=== PATIENT | female | born 1965 ===

== ENCOUNTER → 2016-11-14 | Outpatient (CLI) | payer BC | END | disposition home or self-care (01) | LOC: C.PAPS 09:22 | PROVIDERS: ATTEND Obstetrics & Gynecology | DX: Z01.419 Encounter for gynecological examination (general) (routine) without abnormal findings (principal) ==

== ENCOUNTER → 2017-01-20 | Outpatient (CLI) | payer BC ==
--- NOTE | 2017-01-21 13:36 | MAMMOGRAPHY REPORT ---
THIS REPORT HAS BEEN AMENDED. BILATERAL DIGITAL SCREENING MAMMOGRAM TOMOSYNTHESIS WITH CAD: 01/20/2017 CLINICAL HISTORY: Routine screening. Patient has no complaints. TECHNIQUE: Breast tomosynthesis in addition to standard 2D mammography was performed. Current study was also evaluated with a Computer Aided Detection (CAD) system. COMPARISON: No prior exams were available for comparison. BREAST COMPOSITION: There are scattered areas of fibroglandular density in both breasts. FINDINGS: There is an asymmetry with questionable architectural distortion in the lateral, middle t o posterior left breast, best seen on the CC view but thought to project superiorly on the MLO view. Comparison to prior outside mammograms would be useful to assess stability. There are a few punct ate microcalcifications in the anterior subareolar left breast for which comparison to outside mammo grams would be useful. No other suspicious mass, architectural distortion or cluster of microcalcifications is seen bilater ally. IMPRESSION: ACR BI-RADS CATEGORY 0: INCOMPLETE EVALUATION: NEED ADDITIONAL IMAGING EVALUATION 1. An asymmetry with questionable architectural distortion in the lateral left breast, and left sub areolar microcalcifications need comparison to prior outside mammograms to assess stability. If the outside exams are not obtained in a timely manner, additional spot compression tomosynthesis views and spot magnification views are needed in the left breast. 2. No mammographic evidence of malignancy within the right breast. The patient will be called to schedule an appointment. Approximately 10% of breast cancers are not detected with mammography. A negative mammographic repor t should not delay biopsy if a clinically suggestive mass is present. Shahrzad Mullen M.D. ay/:01/20/2017 16:29:39 Senior Firewall Engineer: Mickey BAL(Sreekanth)(Lenore), [facility] letter sent: Need Priors 0 BI-RADS Code: ACR BI-RADS Category 0: Incomplete Evaluation: Need Additional Imaging Evaluation AMENDMENT: 01/30/2017 Shahrzad Mullen M.D. Prior outside mammograms dated 11/25/2011, 12/02/2012, 12/08/2013, 12/14/2014 and 01/03/2016 became available for review. The left subareolar microcalcifications are stable on all available prior devonte mograms dating back to at least 2011, therefore likely benign with 5 years of stability. The asymmetry in the lateral left breast appears somewhat similar to the prior 2-D mammograms. Chavez jim, given the conspicuous nature and possible associated distortion on the tomosynthesis slices, th is finding remains indeterminate. Additional spot compression tomosynthesis views and possible ultr asound are recommended. This asymmetry thought to project along the posterior nipple line on the ML O view. Amended BI-RADS: ACR BI-RADS Category 0: Incomplete Evaluation: Need Additional Imaging Evaluation letter sent: Addl Imaging 0
== END | disposition home or self-care (01) ==
LOC: C.MAMM 11:02
PROVIDERS: ATTEND Obstetrics & Gynecology
DX: Z12.31 Encounter for screening mammogram for malignant neoplasm of breast (principal); N64.89 Other specified disorders of breast; R92.0 Mammographic microcalcification found on diagnostic imaging of breast

== ENCOUNTER → 2017-02-19 | Outpatient (CLI) | payer BC ==
--- NOTE | 2017-02-19 17:10 | MAMMOGRAPHY REPORT ---
UNILATERAL LEFT DIGITAL DIAGNOSTIC MAMMOGRAM TOMOSYNTHESIS AND TARGETED LEFT ULTRASOUND: 02/19/2017 CLINICAL HISTORY: 51-year-old woman called back from screening mammography for an asymmetry in the l ateral, middle to posterior left breast on the CC view. TECHNIQUE: Left CC and MLO 2-D digital and tomosynthesis images were obtained. COMPARISON: Comparison is made to exams dated: 01/20/2017 mammogram - [facility], 01/03/2016 mammogram, 12/14/2014 mammogram, 12/10/2013 mammogram, 12/02/2012 mammogram, and 11/25/2011 mamm ogram - [facility]. BREAST COMPOSITION: There are scattered areas of fibroglandular density in the left breast. FINDINGS: The asymmetry in the lateral, middle to posterior left breast on the spot compression CC v iew appears similar to prior outside screen film mammograms. There is no definite persistent nehal ectural distortion on the tomosynthesis images. Targeted ultrasound was performed throughout the lateral left breast. No discrete solid or cystic m ass is identified. IMPRESSION: ACR BI-RADS CATEGORY 2: BENIGN, TARGETED ULTRASOUND ACR BI-RADS CATEGORY 2: BENIGN There is no persistent architectural distortion in the lateral posterior left breast correlating wit h an asymmetry seen mammographically. The asymmetry has been present and appears similar to prior m ammograms dating back to at least 2012, therefore likely benign. No suspicious sonographic correlat e was identified. This most likely represents the patient's baseline pattern and recommend follow-u p at time of next annual screening mammogram. Approximately 10% of breast cancers are not detected with mammography. A negative mammographic repor t should not delay biopsy if a clinically suggestive mass is present. Shahrzad Mullen M.D. ay/:02/19/2017 15:30:30 Product Safety Consultant: Larisa BAL(Sreekanth)(Lenore), [facility] letter sent: Normal 1/2 BI-RADS Code: ACR BI-RADS Category 2: Benign Ultrasound BI-RADS: ACR BI-RADS Category 2: Benign
== END | disposition home or self-care (01) ==
LOC: C.MAMM 13:57
PROVIDERS: ATTEND Obstetrics & Gynecology
DX: N64.89 Other specified disorders of breast (principal); R92.2 Inconclusive mammogram

== ENCOUNTER → 2018-01-22 | Outpatient (CLI) | payer OTHER ==
--- NOTE | 2018-01-23 07:21 | MAMMOGRAPHY REPORT ---
BILATERAL DIGITAL SCREENING MAMMOGRAM TOMOSYNTHESIS WITH CAD: 01/22/2018 CLINICAL HISTORY: Routine screening. Patient has no complaints. TECHNIQUE: Breast tomosynthesis in addition to standard 2D mammography was performed. Current study was also evaluated with a Computer Aided Detection (CAD) system. COMPARISON: Comparison is made to exams dated: 02/19/2017 mammogram, 01/20/2017 mammogram - [facility] [address], 01/03/2016 mammogram, 12/14/2014 mammogram, 12/10/2013 mammogram, and 12/02/2012 mammog rosette - [facility]. BREAST COMPOSITION: There are scattered areas of fibroglandular density in both breasts. FINDINGS: No suspicious masses, calcifications, or areas of architectural distortion are noted in ei ther breast. There has been no significant interval change compared to prior exams. Benign-appearing calcifications in the left anterior breast are stable. Asymmetry in the left lateral breast on the cc view is stable compared to prior exams. IMPRESSION: ACR BI-RADS CATEGORY 2: BENIGN There is no mammographic evidence of malignancy. A 1 year screening mammogram is recommended. The pa tient will receive written notification of the results. Approximately 10% of breast cancers are not detected with mammography. A negative mammographic report should not delay biopsy if a clinically suggestive mass is present. China Patel M.D. /:01/22/2018 15:45:38 Concrete Block Mason: Cathy BAL(Sreekanth)(Lenore)([place]), [facility] letter sent: Normal 1/2 BI-RADS Code: ACR BI-RADS Category 2: Benign
== END | disposition home or self-care (01) ==
LOC: C.MAMM 09:07
PROVIDERS: ATTEND Obstetrics & Gynecology
DX: Z12.31 Encounter for screening mammogram for malignant neoplasm of breast (principal)